=== PATIENT | male | born 1955 | race Caucasian/White ===

== ENCOUNTER 2017-04-13 16:58 | Day surgery (SDC) | payer OTHER ==
[~2017-04-13] VITALS: Ht 180.3 cm; Wt 115.3 kg
[~2017-04-13 16:58] MED LIST: ASPIR 8181 M1 PO; CELEXA20 MG PO; CIALIS5 MG PO; METOPROLOL SUCC25 MG PO; NICODERM CQ1 EAC1 TD; NICOTINE GUM2 MG BC; OXYBUTYNIN CHLOR5 M1 PO; SIMVASTATIN80 MG PO; TOPAMAX25 MG PO
[2017-04-13 17:33] VITALS: BP 130/96
[2017-04-13 17:34] LABS: BASOPHIL COUNT 0.1 K/uL (0-0.1); EOSINOPHIL (%) 1.7 % (0-5); EOSINOPHIL COUNT 0.2 K/uL (0-0.3); HEMATOCRIT 43.2 % (38.0-50.0); IMMATURE GRANULOCYTE (%) 0.5 % (0.0-0.7); IMMATURE GRANULOCYTE COUNT 0.1 K/uL; INSTRUMENT ABS NEUTROPHIL CT 9.4 K/uL; LYMPHOCYTE COUNT 2.6 K/uL (1.0-2.8); MCH 32.2 PG (29.0-34.0); MCV 94.7 FL (86-99); MONOCYTE (%) 4.5 % (3-12); MONOCYTE COUNT 0.6 K/uL (0-0.8); NEUTROPHIL (%) 72.5 % (45-76); NEUTROPHIL COUNT 9.4 K/uL (1.8-6.4); PLATELET COUNT 168 K/uL (156-360); RBC DIS.WIDTH-CV 14.7 % (11.8-14.6); RBC DIS.WIDTH-SD 51.4 % (39-53); RED BLOOD COUNT 4.56 M/uL (4.00-5.50)
[2017-04-13 17:45] LABS: ANION GAP 9 MEQ/L (2-14); CHLORIDE 103 MEQ/L (99-109); POTASSIUM 3.6 MEQ/L (3.7-5.4); SAMPLE HEMOLYSIS CHECK 0; SAMPLE ICTERIC CHECK 0; SAMPLE LIPEMIA CHECK 0; SODIUM 137 MEQ/L (136-147); TOTAL BILIRUBIN 0.7 MG/DL (0.0-1.0)
[2017-04-13 17:50] LABS: ALKALINE PHOSPHATASE 45 IU/L (3-129); GFR ESTIMATE (CALCULATED) > 59 mL/min/; GLUCOSE 92 mg/dL (70-99); UREA NITROGEN (BUN) 13 mg/dL (9-23)
[2017-04-13 22:07] VITALS: BP 113/62
[2017-04-13 22:39] VITALS: BP 121/72
[2017-04-13 22:43] VITALS: BP 121/72
== END 2017-04-14 03:05 | disposition home or self-care (01) ==
LOC: SDC 16:58 → ENRESERV 21:14 → 2EAST 21:15 → ENRESERV 21:54 → 2EAST 04-14 03:05
PROVIDERS: Ophthalmology
DX: H33.21 Serous retinal detachment, right eye (principal); Z53.8 Procedure and treatment not carried out for other reasons
CPT/HCPCS: 80053; 85025; G0378; J7120